=== PATIENT | male | born 1965 | race American Indian/Alaskan Native ===

== ENCOUNTER 2019-05-10 10:54 | Emergency (ER) | payer OTHER ==
[2019-05-10 11:03] VITALS: BP 125/96
--- NOTE | 2019-05-10 11:22 | XRay Report ---
CHEST 2 VIEWS INDICATION / CLINICAL INFORMATION: SOB, prod cough. COMPARISON: None available. FINDINGS: SUPPORT DEVICES: None. HEART / MEDIASTINUM: No significant abnormality. LUNGS / PLEURA: There are patchy parenchymal opacities in both mid and lower lungs. There is no pleur al effusion. No pneumothorax. ADDITIONAL FINDINGS: No significant additional findings. IMPRESSION: 1. Patchy bilateral mid and lower lung parenchymal opacities most likely reflecting atypical infectio us process. Signer Name: Marshall Garcia MD Signed: 05/10/2019 11:18 AM Workstation Name: [id number]
--- NOTE | 2019-05-10 11:53 | Emergency Department Report ---
Minor Respiratory - HPI Chief Complaint: Upper Respiratory Infection Stated Complaint: SOB, CHEST TIGHTNESS Time Seen by Provider: 05/10/19 11:38 Minor Respiratory: Yes Able to Tolerate Fluids, Yes Cough, Yes Chest Pain (with rolonged coughing), No Rhinorrhea, No Sore Throat, No Ear Pain, No Sick Contacts, No Hemoptysis, No Shortness of Breath, No Fever Other History: This is a 53-year-old male with past medical history of hypertension who presents the ED complaining of chest tightness, productive intermittent coughing and some shortness of breath for the past 5 days. Patient denies any fever, chills, nausea vomiting or abdominal pain. Patient also denies recent travel outside of the state or country as well as any sick contacts. Patient does state he has a history of bronchitis but denies asthma or COPD ED Review of Systems ROS: Stated complaint: SOB, CHEST TIGHTNESS Other details as noted in HPI Comment: All other systems reviewed and negative ED Past Medical Hx - Medications Home Medications: Home Medications Medication Instructions Recorded Confirmed Last Taken Type Albuterol INH(or & Nicu Only) 2 puff IH QID PRN #8.5 gram 05/10/19 Unknown Rx [ProAir HFA Inhaler] Azithromycin [Zithromax] 250 mg PO DAILY #6 tablet 05/10/19 Unknown Rx Benzonatate [Tessalon Perles] 100 mg PO Q8HR #30 capsule 05/10/19 Unknown Rx Minor Respiratory Exam - Exam General: Vital signs noted. No distress. Alert and acting appropriately. HEENT: Yes Moist Mucous Membranes, No Pharyngeal Erythema, No Pharyngeal Exudates, No Rhinorrhea, No Conjuctival Injection, No Frontal Tenderness, No Maxillary Tenderness Ear: Neither TM Bulge, Neither TM Erythema, Neither EAC Pain, Neither EAC Discharge Neck: Yes Supple, No Adenopathy Lungs: Yes Good Air Exchange, No Wheezes, No Ronchi, No Stridor, No Cough, No Labored Respirations, No Retractions, No Use of Accessory Muscles, No Other Abnormal Lung Sounds Heart: Yes Regular, No Murmur Abdomen: Yes Normal Bowel Sounds, No Tenderness, No Peritoneal Signs Skin: No Rash, No Edema Neurologic: Alert and oriented, no deficits. Musculoskeletal: Unremarkable. ED Course Vital Signs 05/10/19 11:02 Temperature 98.1 F Pulse Rate 111 H Respiratory 20 Rate Blood Pressure 125/96 [Right] O2 Sat by Pulse 98 Oximetry ED Medical Decision Making - Radiology Data Radiology results: report reviewed, image reviewed INDICATION / CLINICAL INFORMATION: SOB, prod cough. COMPARISON: None available. FINDINGS: SUPPORT DEVICES: None. HEART / MEDIASTINUM: No significant abnormality. LUNGS / PLEURA: There are patchy parenchymal opacities in both mid and lower lungs. There is no pleural effusion. No pneumothorax. ADDITIONAL FINDINGS: No significant additional findings. IMPRESSION: 1. Patchy bilateral mid and lower lung parenchymal opacities most likely reflecting atypical infectious process. Signer Name: Marshall Garcia MD Signed: 05/10/2019 11:18 AM Workstation Name: [id number] Transcribed By: SAUL Dictated By: Marshall Garcia MD Electronically Authenticated By: Marshall Garcia MD Signed Date/Time: 05/10/19 1118 - Medical Decision Making 53-year-old male presents with upper respiratory infection . no fever during the ED stay. Chest x-ray shows patchy infiltrates, see report above Discussed with mother symptomatic relief with [id number] medications. Discussed continue Tylenol and Motrin as needed for fever and pain. Discussed follow-up with primary care physician in 3-5 days. Patient verbally states she understands and will comply the following instructions and follow-up Vital signs stable. Patient is in no acute distress Critical care attestation.: If time is entered above; I have spent that time in minutes in the direct care of this critically ill patient, excluding procedure time. ED Disposition Clinical Impression: Upper respiratory infection, Acute bronchitis Disposition: [id number] TO HOME OR SELFCARE Is pt being admited?: No Does the pt Need Aspirin: No Condition: Stable Instructions: Upper Respiratory Infection (ED), Acute Bronchitis (ED) Additional Instructions: Make sure to follow up with the primary care physician as discussed. Take all your medications as you've been prescribed. If you have any worsening symptoms or develop new symptoms please return to ED immediately. Prescriptions: Albuterol INH(or & Nicu Only) [ProAir HFA Inhaler] 2 puff IH QID PRN #8.5 gram PRN Reason: Shortness Of Breath Benzonatate [Tessalon Perles] 100 mg PO Q8HR #30 capsule Azithromycin [Zithromax] 250 mg PO DAILY #6 tablet Referrals: [facility] [Outside] - 3-5 Days [facility] [Outside] - 3-5 Days Forms: Accompanied Note, Work/School Release Form(ED) Time of Disposition: 12:03
[2019-05-10] MEDS ORDERED: guaiFENesin 100 MG/5 ML ORAL LIQD PO ONE (12:02)
[2019-05-10] MEDS ORDERED: AZITHROMYCIN 250 MG TAB PO ONE (12:02)
== END 2019-05-10 12:20 | disposition home or self-care (01) ==
LOC: ED 10:54
DX: J20.9 Acute bronchitis, unspecified (principal)
CPT/HCPCS: 71046; 99283